=== PATIENT | female | born 1965 | race Caucasian/White ===

== ENCOUNTER 2020-09-15 19:49 | Emergency (ER) | payer MEDICAID ==
[~2020-09-15] VITALS: Ht 165.1 cm; Wt 77.3 kg
--- NOTE | 2020-09-15 21:01 | NUR ---
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 She was brought to the ER by her friend. The patient reported had a suicide attempt earlier in the day by trying to drown herself in her pool. She presented as pleasant and trying to be cooperative but was tearful, anxious and disorganized. She reports that she has not been sleeping and has been having racing thoughts. She reports voices that she cannot make out what they are saying. She reports at night she is seeing faces. She described her energy level as very high then low. She described mood lability. She has financial stressors from not working and using her credit cards to pay bills. She has a history of postpartem depression.
--- NOTE | 2020-09-15 21:11 | NUR ---
FAMILY CONTACT; SON, MAREN NAQVI,
--- NOTE | 2020-09-15 22:02 | NUR ---
Lab is at the bedside. Patient to CT via WC
[2020-09-15 22:23] LABS: BASOPHILS # (AUTO) 0.1 X10'3 (0-0.2); BASOPHILS % (AUTO) 0.5 % (0-1); EOSINOPHILS # (AUTO) 0.1 X10'3 (0-0.9); EOSINOPHILS % (AUTO) 0.8 % (0-6); HEMATOCRIT 40.2 % (35.0-45.0); HEMOGLOBIN 14.1 g/dl (12.0-16.0); LYMPHOCYTES # (AUTO) 1.4 X10'3 (1.1-4.8); LYMPHOCYTES % (AUTO) 12.1 % (21-51); MEAN CORPUSCULAR HEMOGLOBIN 32.1 PG (27.0-31.0); MEAN CORPUSCULAR VOLUME 91.7 FL (78-98); MEAN PLATELET VOLUME 8.8 FL (7.4-10.4); MONOCYTES # (AUTO) 0.7 X10'3 (0-0.9); MONOCYTES % (AUTO) 6.2 % (2-12); NEUTROPHILS # (AUTO) 9.7 X10'3 (1.8-7.7); NEUTROPHILS % (AUTO) 80.4 % (42-75); PLATELET COUNT 330 X10'3 (140-440); RED BLOOD COUNT 4.38 X10'6 (4.20-5.60); RED CELL DISTRIBUTION WIDTH 12.6 % (11.5-14.5)
[2020-09-15 22:34] LABS: ALANINE AMINOTRANSFERASE 29 U/L (12-78); ALBUMIN 4.1 G/DL (3.4-5.0); ALBUMIN/GLOBULIN RATIO 1.2 (1.1-1.5); ALKALINE PHOSPHATASE 114 IU/L (46-116); ANION GAP 11 (8-16); ASPARTATE AMINO TRANSFERASE 22 U/L (10-37); BILIRUBIN,TOTAL 0.4 MG/DL (0.1-1.0); BLOOD UREA NITROGEN 13 MG/DL (7-18); BUN/CREATININE RATIO 15.9 (6.6-38.0); CHLORIDE 100 MMOL/L (99-107); CREATININE 0.82 MG/DL (0.40-0.90); GLUCOSE 116 MG/DL (70-104); SODIUM 138 MMOL/L (135-145); TOTAL PROTEIN 7.6 G/DL (6.4-8.2); eGFR 73 ML/MIN
[2020-09-15 22:37] LABS: POTASSIUM 2.8 MMOL/L (3.5-5.1)
[2020-09-15 22:38] LABS: ETHANOL < 0.010 GM/DL (0.0-0.010)
[2020-09-15] MEDS ORDERED: potassium Cl 20 mEq SR tablet PO STA (22:38)
[2020-09-15 22:44] LABS: CLARITY,URINE CLEAR (Clear); COLOR,URINE YELLOW (Yellow); GLUCOSE, URINE NEGATIVE (Neg); KETONES,URINE NEGATIVE (Neg); LEUKOCYTE ESTERASE ,URINE NEGATIVE (Neg); NITRITES, URINE NEGATIVE (Neg); OCCULT BLOOD,URINE TRACE-INTACT (Neg); PROTEIN,URINE NEGATIVE (Neg); UROBILINOGEN,URINE 0.2 E.U/dL (0.2-1.0)
--- NOTE | 2020-09-15 22:45 | NUR ---
K+ 2.8 and orders received.
[2020-09-15 22:53] LABS: UA COLLECTION TYPE CLN CATCH MIDSTREAM
[2020-09-15 22:54] LABS: BACTERIA,URINE FEW /HPF (Neg); RBC,URINE 0-2 /HPF (0-2); SQUAMOUS EPITHELIAL CELL,UR FEW /LPF (FEW); WBC,URINE 0-4 /HPF (0-4)
[2020-09-15 23:03] LABS: URINE AMPHETAMINE SCREEN NEGATIVE (Neg); URINE BARBITUATE SCREEN NEGATIVE (Neg); URINE BENZODIAZEPINES SCREEN NEGATIVE (Neg); URINE CANNABINOID SCREEN POSITIVE (Neg); URINE COCAINE SCREEN NEGATIVE (Neg); URINE METHADONE SCREEN NEGATIVE (Neg); URINE OPIATE SCREEN NEGATIVE (Neg); URINE PHENCYCLIDINE SCREEN NEGATIVE (Neg)
--- NOTE | 2020-09-15 23:12 | NUR ---
Dr. Swenson made aware that the patient is restless unable to sleep and has not slept the past 3 days. He was also made aware that she was having psychotic symptoms.
[2020-09-15] MEDS ORDERED: risperiDONE 0.5mg tablet PO ONE (23:15)
--- NOTE | 2020-09-15 23:18 | NUR ---
The patient refused medication. Very easily agitated and tolerating one to one very poorly. She began to scream but quickly stopped because she is aware that other people were trying to sleep.
--- NOTE | 2020-09-16 00:43 | NUR ---
The patient is still awake, states she won't take psych medications unless her son tells her it's ok.
[2020-09-16] MEDS ORDERED: risperiDONE 0.5mg tablet PO ONE (01:00)
--- NOTE | 2020-09-16 01:58 | NUR ---
Patient very restless. Still trying to sleep.
--- NOTE | 2020-09-16 03:24 | NUR ---
The patient finally appears to be asleep in supine position.
--- NOTE | 2020-09-16 06:00 | NUR ---
Patient continues to sleep on left side.
[2020-09-16] MEDS ORDERED: potassium Cl 20 mEq SR tablet PO STA (06:34)
[2020-09-16] MEDS ORDERED: LORazepam 1 MG tablet PO ONE (07:10)
--- NOTE | 2020-09-16 07:12 | NUR ---
Discussed pt's disturbed thought processes and affiliated anxiety with ed jin;new order for ativan 0.5mg received.
--- NOTE | 2020-09-16 07:12 | NUR ---
PACKET FAXED TO [facility]
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
--- NOTE | 2020-09-16 09:00 | NUR ---
TISH Miranda engaged with pt in psychosocial assessment.
--- NOTE | 2020-09-16 09:26 | NUR ---
Registration speaking with patient at this time. All questions and concerns addressed.
[2020-09-16 09:27] LABS: BASOPHILS # (AUTO) 0.1 X10'3 (0-0.2); BASOPHILS % (AUTO) 0.8 % (0-1); EOSINOPHILS # (AUTO) 0.1 X10'3 (0-0.9); EOSINOPHILS % (AUTO) 0.8 % (0-6); HEMATOCRIT 41.6 % (35.0-45.0); HEMOGLOBIN 14.6 g/dl (12.0-16.0); LYMPHOCYTES % (AUTO) 13.2 % (21-51); MEAN CORPUSCULAR HEMOGLOBIN 32.4 PG (27.0-31.0); MEAN CORPUSCULAR HGB CONC 35.2 g/dL (33.0-36.5); MEAN CORPUSCULAR VOLUME 92.1 FL (78-98); MEAN PLATELET VOLUME 9.2 FL (7.4-10.4); MONOCYTES # (AUTO) 0.4 X10'3 (0-0.9); MONOCYTES % (AUTO) 5.5 % (2-12); NEUTROPHILS % (AUTO) 79.7 % (42-75); PLATELET COUNT 351 X10'3 (140-440); RED BLOOD COUNT 4.51 X10'6 (4.20-5.60); RED CELL DISTRIBUTION WIDTH 12.4 % (11.5-14.5); WHITE BLOOD COUNT 7.5 X10'3 (4.5-11.0)
--- NOTE | 2020-09-16 10:32 | NUR ---
PT'S DAUGHTER JADEN IS AT THE BEDSIDE VISITING.
--- NOTE | 2020-09-16 10:34 | NUR ---
Pt's daughter visiting.
--- NOTE | 2020-09-16 11:03 | NUR ---
[facility] [place] called for pt status r/t possible placement. Due to pt's need for assistive device to ambulate she is not a candidate for [facility].
--- NOTE | 2020-09-16 11:30 | NUR ---
Pt's mother requested visit, which was amenable to pt, but with the request the visit have a time limit. 30 minutes was agreed upon and mother was informed when she arrived to ed20.
--- NOTE | 2020-09-16 12:01 | NUR ---
PT'S FRIEND SERGIO CALLED TO CHECK IN ON PT. HER PHONE NUMBER IS [phone].
[2020-09-16] MEDS ORDERED: HYDR25TA5 PO (16:52)
[2020-09-16] MEDS ORDERED: NORT25CA5 PO (16:52)
[2020-09-16] MEDS ORDERED: CAND16TA25 PO (16:52)
[2020-09-16] MEDS ORDERED: METH-352 PO (16:52)
--- NOTE | 2020-09-16 19:25 | NUR ---
The patient is resting on her bed and watching tv and playing a [employer] game at the same time. Her thoughts are more linear than on admit but her replies at times can be quite circumstantial. She is still having lability and is easily tearful at times. She reports feeling much better today and stated she enjoyed the visits from her family. She denies auditory or visual hallucinations at this time.
--- NOTE | 2020-09-16 20:59 | NUR ---
THe patient is resting quietly on her bed
[2020-09-16] MEDS ORDERED: nortriptyline 25mg capsule PO SCH (21:00)
--- NOTE | 2020-09-16 21:19 | NUR ---
Nurse to nurse at [facility]
--- NOTE | 2020-09-16 21:28 | NUR ---
The patient has been accepted at [facility] pending negative covid. Per [facility] they do not have a cdl truck driver available tonight.
--- NOTE | 2020-09-16 23:08 | NUR ---
The patient appears to be sleeping
--- NOTE | 2020-09-17 00:15 | NUR ---
The patient appears to be sleeping
--- NOTE | 2020-09-17 01:56 | NUR ---
Patient awake and covid swab collected. The patient is wide awake. MD made aware and orders received.
[2020-09-17] MEDS ORDERED: LORazepam 1 MG tablet PO ONE (02:00)
--- NOTE | 2020-09-17 02:35 | NUR ---
covid results faxed [facility]
--- NOTE | 2020-09-17 03:59 | NUR ---
The patient appears to be sleeping
--- NOTE | 2020-09-17 04:52 | NUR ---
The patient appears to be sleeping
[2020-09-17 05:59] VITALS: BP_DIAS 83
--- NOTE | 2020-09-17 06:02 | NUR ---
[facility] is accepting the patient. Once [facility] arranges transport call to unit 1 with a nurse to nurse report .
[2020-09-17] MEDS ORDERED: losartan 50mg tablet PO SCH (08:00)
[2020-09-17] MEDS ORDERED: HYDROchlorothiazide 25mg tablet PO SCH (08:00)
[2020-09-17] MEDS ORDERED: methylphenidate 5mg tablet PO SCH (08:00)
[2020-09-17 08:33] VITALS: BP_SYST 115
== END 2020-09-17 11:08 ==
LOC: ER 19:50
DX: R45.851 Suicidal ideations (principal); Z20.822 Contact with and (suspected) exposure to COVID-19; F32.9 Major depressive disorder, single episode, unspecified; F29 Unspecified psychosis not due to a substance or known physiological condition; G43.909 Migraine, unspecified, not intractable, without status migrainosus; F12.90 Cannabis use, unspecified, uncomplicated; Z85.3 Personal history of malignant neoplasm of breast; Z90.89 Acquired absence of other organs; Z98.890 Other specified postprocedural states; Z72.89 Other problems related to lifestyle; Z88.1 Allergy status to other antibiotic agents; Z88.5 Allergy status to narcotic agent; Z88.8 Allergy status to other drugs, medicaments and biological substances
CPT/HCPCS: 36415; 70450; 80053; 80305; 80320; 81001; 84443; 85025; 87426; 99285

== ENCOUNTER 2025-02-17 00:23 | Emergency (ER) | payer BC, MEDICAID ==
[~2025-02-17] VITALS: Ht 165.1 cm; Wt 74.1 kg
[~2025-02-17 00:23] MED LIST: CAND16TA25 PO; HYDR25TA5 PO; METH-352 PO; NORT25CA5 PO
--- NOTE | 2025-02-17 00:27 | Physician Documentation ---
History of Present Illness ~ Stated Complaint: MED CLEARANCE Time Seen by MD: 00:23 Primary Medical Doctor: EDIS OROZCO HPI 59 year old female BIB JUSTICE for acute agitation and flight of ideas for grave disability. Patient arrives talking on and on about all sorts of things, uncooperative. Medication Reconciliation Allergies: Coded Allergies: ciprofloxacin (Verified Allergy, Unknown, 09/16/20) codeine (Verified Allergy, Unknown, 09/16/20) sumatriptan (Verified Allergy, Unknown, 09/16/20) Scheduled Candesartan Cilexetil (Atacand), 1 TAB PO DAILY, (Reported) Hydrochlorothiazide (Hydrochlorothiazide), 2 TAB PO DAILY, (Reported) Methylphenidate Hcl (Methylphenidate Er), 5 TAB PO QAM, (Reported) Nortriptyline Hcl (Pamelor), 1 CAP PO HS, (Reported) Past Medical History Past Medical History: Migraine, *GI/HEPATOBILIARY*, Breast Cancer Past Surgical History: appendectomy, orthopedic surgeries Alcohol Use: Occasionally Drug Use: marijuana Lives In: Home Review of Systems All Other Systems at this time: Reviewed and Negative Physical Exam Vital Signs: RN Vital Signs have been reviewed: Yes Physical Exam HEENT: PERRL, moist oral mucosa, EOMI Pulmonary: No respiratory distress MSK: no deformity Skin: w/d/i, no rash Neuro: alert, nonfocal Psych: agitated, flight of ideas Progress Results/Orders Results/Orders Orders - ROSE LASSITER MD 1799.11 (02/17/25 ) Medical Decision Making Additional information obtaine: N/A Findings 59 year old female with flight of ideas. mental health hold, medically clear for behavioral health evaluation. Differential Dx:Considerations: Include: Alcohol abuse, Anxiety, Depression, En cephaloathy, Homicidal, Panic disorder, Personality disorder, Schizophrenia, Substance abuse, Suicidal, Other Departure Disposition: 30 STILL A PATIENT Impression: Primary Impression: Psychosis Condition: Stable Referrals: NO PRIMARY CARE PROVIDER (PCP) Education Educated: Patient Educated regarding: diagnosis, treatment Signature Scribe Signature: . Attestation: . ROSE LASSITER MD Feb 17, 2025 00:27
[2025-02-17 01:04] LABS: MEAN PLATELET VOLUME 9.3 FL (7.4-10.4); RED CELL DISTRIBUTION WIDTH 14.0 % (11.5-14.5)
[2025-02-17 01:29] LABS: CREATININE 0.57 MG/DL (0.40-0.90); TOTAL CARBON DIOXIDE 30.2 MMOL/L (24-32); eCRCL 96 ML/MIN; eGFR > 90 ML/MIN
[2025-02-17 01:31] LABS: ETHANOL < 10 MG/DL (<10)
[2025-02-17] MEDS ORDERED: POTASSIUM CHLORIDE 20 MEQ/15 ML oral solution PO SCH (01:40)
[2025-02-17] MEDS: POTASSIUM CHLORIDE 20 MEQ/15 ML oral solution PO ONE (02:01)
[2025-02-17 05:22] LABS: LEUKOCYTE ESTERASE ,URINE SMALL (Neg); NITRITES, URINE NEGATIVE (Neg); OCCULT BLOOD,URINE NEGATIVE (Neg)
[2025-02-17 05:25] LABS: UA COLLECTION TYPE NON-SPECIFIED
[2025-02-17 05:38] LABS: URINE AMPHETAMINE SCREEN NEGATIVE (Neg); URINE BARBITUATE SCREEN NEGATIVE (Neg); URINE BENZODIAZEPINES SCREEN NEGATIVE (Neg); URINE CANNABINOID SCREEN POSITIVE (Neg); URINE COCAINE SCREEN NEGATIVE (Neg); URINE METHADONE SCREEN NEGATIVE (Neg); URINE OPIATE SCREEN NEGATIVE (Neg); URINE PHENCYCLIDINE SCREEN NEGATIVE (Neg)
[2025-02-17 12:05] LABS: CREATININE 0.55 MG/DL (0.40-0.90); TOTAL CARBON DIOXIDE 33.9 MMOL/L (24-32); eCRCL 99 ML/MIN; eGFR > 90 ML/MIN
[2025-02-17] MEDS ORDERED: CELE-193 PO (12:21)
[2025-02-17] MEDS ORDERED: HYDR25TA4 PO (12:21)
[2025-02-17] MEDS ORDERED: AMLO-139 PO (12:21)
[2025-02-17] MEDS ORDERED: ATOR20TA PO (12:21)
[2025-02-17] MEDS: POTASSIUM BICARB 20meq eff tab 20 MEQ TABLET.EFF PO ONE (13:04)
[2025-02-17] MEDS: POTASSIUM BICARB 20meq eff tab 20 MEQ TABLET.EFF PO SCH (17:09)
[2025-02-18 10:39] VITALS: BP 148/96; PULSE 92; RESP 14; TEMP 98.1
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
[2025-02-18] MEDS: POTASSIUM BICARB 20meq eff tab 20 MEQ TABLET.EFF PO SCH (13:18)
[2025-02-18] MEDS ORDERED: OLANZAPINE 5 MG TABLET PO SCH (16:00)
== END 2025-02-18 15:57 ==
LOC: ER 00:23
DX: F29 Unspecified psychosis not due to a substance or known physiological condition (principal); F41.9 Anxiety disorder, unspecified; F31.9 Bipolar disorder, unspecified; F15.90 Other stimulant use, unspecified, uncomplicated; Z90.49 Acquired absence of other specified parts of digestive tract; Z88.1 Allergy status to other antibiotic agents; Z88.5 Allergy status to narcotic agent; Z85.3 Personal history of malignant neoplasm of breast; Z79.899 Other long term (current) drug therapy; Z72.89 Other problems related to lifestyle; Z98.890 Other specified postprocedural states; Z20.822 Contact with and (suspected) exposure to COVID-19
CPT/HCPCS: 36415; 80048; 80053; 80305; 80320; 81001; 84132; 84443; 85025; 87811; 99285; Q0163